=== PATIENT | female | born 1990 | race Native Hawaiian/Other Pacific Islander ===

== ENCOUNTER 2017-09-20 09:56 | Emergency (ER) | payer OTHER ==
[2017-09-20 09:56] VITALS: BMI 27.0
[2017-09-20 10:10] VITALS: BP 103/72; PULSE 100; RESP 16; O2SAT 100
[2017-09-20 10:35] VITALS: TEMP 98.7
--- NOTE | 2017-09-20 10:36 | C.PDOC ---
History Of Present Illness 27 yr old female presents to the ER with complaints of sore throat for the past 3 days, associated with subjective fever. Patient denies taking any medications , nausea, vomiting, neck pain or headache. SORE THROAT X 3 DAYS. SUBJ FEVER. NO MEDS TAKEN TODAY. NO OTHER ASSOC SX EXAM NONTOXIC HEENT +R TONSILAR SWELL UVULA MIDLINE. NO EXUDATE. +ERYTHEMA NO STRIDOR/DROOLING NECK SUPPLE NO PALP NODES REMAINDER NEG MDM PS IS . ADVISED ABX SAFE DURING BUT CAN STOP FOR DURATION +2 DAYS OF ABX THERAPY. SALT WATER GARGLES, TYLENOL, DEX Time Seen by Provider: 09/20/17 10:12 Chief Complaint (Nursing): ENT Problem History Per: Patient History/Exam Limitations: no limitations Onset/Duration Of Symptoms: Days (3) Current Symptoms Are (Timing): Still Present Past Medical History Reviewed: Historical Data, Nursing Documentation, Vital Signs Vital Signs: Last Vital Signs Temp 98.7 F 09/20/17 10:35 Pulse 100 H 09/20/17 10:08 Resp 16 09/20/17 10:08 BP 103/72 09/20/17 10:08 Pulse Ox 100 09/20/17 10:37 - [facility] Procedures EXTRACTION OF POC, LOW CERVICAL, OPEN APPROACH (08/20/16) Family History: States: No Known Family Hx - Social History Hx Tobacco Use: No Hx Alcohol Use: No Hx Substance Use: No - Immunization History Hx Tetanus Toxoid Vaccination: No Hx Influenza Vaccination: No Hx Pneumococcal Vaccination: No Review Of Systems Except As Marked, All Systems Reviewed And Found Negative. Constitutional: Positive for: Fever (Subjective) ENT: Positive for: Throat Pain (Sore throat) Gastrointestinal: Negative for: Nausea, Vomiting Musculoskeletal: Negative for: Neck Pain Neurological: Negative for: Headache Physical Exam - Physical Exam Appears: Non-toxic, No Acute Distress Skin: Warm, Dry, No Rash Head: Atraumatic, Normacephalic Ear(s): Bilateral: Normal Oral Mucosa: Moist Throat: Erythema, No Exudate, No Drooling, Other ((+) Right tonsilar swelling. Uvula midline. (-) Stridor.) Neck: Normal, Normal ROM, Supple, Other (No palpable nodes.) Respiratory: Normal Breath Sounds, No Rales, No Rhonchi, No Stridor, No Wheezing Neurological/Psych: Oriented x3, Normal Speech, Normal Motor ED Course And Treatment O2 Sat by Pulse Oximetry: 100 (RA) Pulse Ox Interpretation: Normal Medical Decision Making Medical Decision Making: NOTE: * Patient is breast feeding. Advised antibiotics are safe during but can stop breast feeding for duration +2 days of antibiotic therapy. Salt water gargles, Tylenol, DEX. Disposition Counseled Patient/Family Regarding: Diagnosis, Need For Followup, Rx Given - Disposition Referrals: [facility] [Outside] [facility] [Outside] Disposition: HOME/ ROUTINE Disposition Time: 10:35 Condition: GOOD Additional Instructions: TYLENOL ONLY IF . SALT WATER GARGLES FOR PAIN. Prescriptions: Amoxicillin 875 mg PO BID #20 tab Instructions: Effects of Smoking, Alcohol, and Medicines on (ED) , Pharyngitis (ED) Forms: [employer] (Maori) - Clinical Impression Clinical Impression: Pharyngitis - Scribe Statement The provider has reviewed the documentation as recorded by the Leticia Jaeger Provider Attestation: All medical record entries made by the Taiibmilan were at my direction and personally dictated by me. I have reviewed the chart and agree that the record accurately reflects my personal performance of the history, physical exam, medical decision making, and the department course for this patient. I have also personally directed, reviewed, and agree with the discharge instructions and disposition.
== END 2017-09-20 11:00 | disposition home or self-care (01) ==
LOC: C.ER 09:56
DX: J02.9 Acute pharyngitis, unspecified (principal)